=== PATIENT | male | born 1970 | race Caucasian/White ===

== ENCOUNTER 2024-04-30 12:43 | Emergency (ER) | payer SELFPAY ==
[2024-04-30 12:46] VITALS: BP 192/106; PULSE 102; RESP 20; O2SAT 97
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
== END 2024-04-30 15:30 | disposition home or self-care (01) ==
PROVIDERS: Emergency Provider Family Medicine
DX: S01.511A Laceration without foreign body of lip, initial encounter (principal); Y04.2XXA Assault by strike against or bumped into by another person, initial encounter
CPT/HCPCS: 12052; 99283